=== PATIENT | male | born 1955 | race Caucasian/White ===

== ENCOUNTER 2016-08-16 14:45 | Inpatient (IN) ==
[2016-08-16] MEDS: *HR* OxyCODONE Immed Rel 5 MG TABLET PO PRN ×2 (15:42→20:25)
--- NOTE | 2016-08-16 16:11 | Internal Med History&Physical ---
Date of Encounter: 08/16/16 Time of Encounter: 16:09 Internal Medicine - H&P: HPI Chief complaint: Patient admitted significant for [facility] for rehabilitation sta Admitted From: Hospital to Hospital Transfer Plans for Post Hospital Care: Home History of present illness: Mr. Romero is a 61 year old male Patient states that he has had many years of back pain problems could not take it anymore and ask his primary care physician refer him to someone that could do some definitive care. Sequelae was accomplished Past Med Surg Social Fam HX - Past Medical History Medical history: hypertension, other Psychiatric history: anxiety - Past Surgical History Surgical History: no surgical history - Social History Smoking Status: Current every day smoker Smokeless Tobacco Status: No Alcohol use: none Drug use: none Internal Medicine - H&P: Meds Diazepam [Valium] 5 mg PO TID PRN #9 tablet 08/15/16 [Rx] OxyCODONE Immed Rel [Roxicodone 5 MG] 10 mg PO Q4HR PRN #50 tablet 08/15/16 [Rx] Varenicline [Chantix] 0.5 mg PO DAILY tablet 08/15/16 [Rx] Allergies No Known Allergies Allergy (Verified 08/12/16 06:56) All Systems PM: A 10-system review of systems was performed and is negative for pertinent findings except as documented above in the HPI. - Constitutional Vitals: Temp Pulse Resp BP Pulse Ox 97.5 F L 84 18 141/79 96 08/16/16 15:00 08/16/16 15:00 08/16/16 15:00 08/16/16 15:00 08/16/16 15:00 - Head Head exam: Present: atraumatic, normal inspection, normocephalic - Neck Neck exam general surgery: Present: supple, trachea midline. Absent: lymphadenopathy - Respiratory Respiratory exam: Present: CTAB. Absent: accessory muscle use, rales, rhonchi, wheezes - Cardiovascular Cardiovascular exam: Present: RRR, +S1, +S2. Absent: diastolic murmur, gallop, rubs, systolic murmur - GI/Abdominal GI/Abdominal exam: Present: normal bowel sounds, soft, no peritoneal signs. Absent: distended, tenderness Internal Med - H&P Results - Labs Labs: Labs pending - VTE Documentation of Mechanical Device: Graduated compression elastic hosiery
[2016-08-17] MEDS: *HR* OxyCODONE Immed Rel 5 MG TABLET PO PRN ×5 (01:15→20:08)
[2016-08-17 05:50] LABS: Basophils % 0.4 %; Eosinophils # 0.4 K/mcL (0.0-0.6); Eosinophils % 3.7 %; Hematocrit 34.3 % (37.5-50.1); Hemoglobin 11.7 g/dL (12.9-16.9); Immature Granulocytes % 0.5 % (0-4); Lymphocytes # 2.8 K/mcL (0.6-4.6); Lymphocytes % 28.9 %; Mean Corpuscular HGB Conc 34.1 g/dL (31.6-35.5); Mean Corpuscular Hemoglobin 30.2 pg (28.0-33.3); Mean Corpuscular Volume 88.6 fL (83.0-100.0); Mean Platelet Volume 9.4 fL (9.4-12.4); Monocytes # 1.1 K/mcL (0.0-1.3); Monocytes % 11.5 %; Neutrophils # 5.2 K/mcL (1.6-8.9); Platelet Count 388 K/mcL (140-400); Red Blood Count 3.87 M/mcL (4.19-5.50); Red Cell Distribution Width 13.2 % (11.5-14.5)
[2016-08-17 06:03] LABS: BUN/Creatinine Ratio 24 (6-26); Blood Urea Nitrogen 18 mg/dL (8-26); Calcium 8.5 mg/dL (8.6-10.8); Carbon Dioxide 23 mEq/L (19-29); Chloride 105 mEq/L (98-109); Glucose 105 mg/dL (70-99); Osmolality,Calculated 292 (280-300); Potassium 3.2 mEq/L (3.5-4.5); Sodium 140 mEq/L (136-145); eGFR For African Americans > 60 (> 60); eGFR For Non-African Americans > 60 (> 60)
--- NOTE | 2016-08-17 13:31 | Internal Med Progress Note ---
Date of Encounter: 08/17/16 Time of Encounter: 13:30 - Time Spent With Patient Status post PLIF. PT OT working on transfer, gait, endurance. History of hypertension. History of COPD. less than 15 minutes - Subjective Interval history: Complaints of mild postop back pain. No shortness of breath. No chest pain. No nausea vomiting abdominal pain. Voiding adequately - Constitutional Vitals: Temp Pulse Resp BP Pulse Ox 98.6 F 77 18 129/78 98 08/17/16 06:45 08/17/16 06:45 08/17/16 06:45 08/17/16 06:45 08/17/16 06:45 General appearance: Present: A&O X 3, pleasant, no acute distress - Respiratory Respiratory exam: Present: CTAB. Absent: accessory muscle use, rales, rhonchi, wheezes - Cardiovascular Cardiovascular exam: Present: RRR, +S1, +S2. Absent: diastolic murmur, gallop, rubs, systolic murmur - GI/Abdominal GI/Abdominal exam: Present: normal bowel sounds, soft, no peritoneal signs. Absent: distended, tenderness - Extremities Exam Extremities exam: Present: warm, radial pulses palpable and symetrical. Absent : calf tenderness, cyanotic, pedal edema - Back Exam Back exam: Present: tenderness Internal Medicine: Result - Labs CBC & Chem 7: 08/17/16 04:50 08/17/16 04:50 Labs: Short CBC 08/17/16 Range/Units 04:50 WBC 9.5 (4.3-11.1) K/mcL Hgb 11.7 L (12.9-16.9) g/dL Hct 34.3 L (37.5-50.1) % Plt Count 388 (140-400) K/mcL Neutrophils # 5.2 (1.6-8.9) K/mcL BMP 08/17/16 04:50 Sodium 140 Potassium 3.2 L Chloride 105 Carbon Dioxide 23 BUN 18 Creatinine 0.76 Glucose 105 H Calcium 8.5 L - VTE Documentation of Mechanical Device: Graduated compression elastic hosiery Consult Discharge Plan - Plan Referrals: Thang Alcala MD [Primary Care Provider] -
[2016-08-18] MEDS: *HR* OxyCODONE Immed Rel 5 MG TABLET PO PRN ×5 (00:03→23:38)
--- NOTE | 2016-08-18 10:31 | Internal Med Progress Note ---
Date of Encounter: 08/18/16 Time of Encounter: 10:30 - Time Spent With Patient Diagnosis. Status postPLIF history of hypertension. History of COPD. Plan. PT OT working on endurance, gait transfer improving ADL. less than 15 minutes - Subjective Interval history: Complaints of mild postop back pain but better today. Voiding okay.. No shortness of breath. No chest pain. No nausea vomiting abdominal pain. Voiding adequately - Constitutional Vitals: Temp Pulse Resp BP Pulse Ox 98.4 F 80 18 118/76 94 L 08/18/16 07:29 08/18/16 07:29 08/18/16 07:29 08/18/16 07:29 08/18/16 07:29 General appearance: Present: A&O X 3, pleasant, no acute distress - Respiratory Respiratory exam: Present: CTAB. Absent: accessory muscle use, rales, rhonchi, wheezes - Cardiovascular Cardiovascular exam: Present: RRR, +S1, +S2. Absent: diastolic murmur, gallop, rubs, systolic murmur - GI/Abdominal GI/Abdominal exam: Present: normal bowel sounds, soft, no peritoneal signs. Absent: distended, tenderness - Incison Incision: Present: clean and dry - Back Exam Back exam: Present: tenderness Internal Medicine: Result - Labs CBC & Chem 7: 08/17/16 04:50 08/17/16 04:50 - VTE Documentation of Mechanical Device: Graduated compression elastic hosiery Consult Discharge Plan - Plan Referrals: Thang Alcala MD [Primary Care Provider] -
[2016-08-19] MEDS: *HR* OxyCODONE Immed Rel 5 MG TABLET PO PRN ×5 (05:39→22:45)
[2016-08-19 06:40] LABS: Basophils % 0.3 %; Eosinophils # 0.5 K/mcL (0.0-0.6); Eosinophils % 5.3 %; Hematocrit 33.4 % (37.5-50.1); Hemoglobin 11.4 g/dL (12.9-16.9); Immature Granulocytes % 0.6 % (0-4); Lymphocytes # 2.3 K/mcL (0.6-4.6); Lymphocytes % 25.7 %; Mean Corpuscular HGB Conc 34.1 g/dL (31.6-35.5); Mean Corpuscular Hemoglobin 30.2 pg (28.0-33.3); Mean Corpuscular Volume 88.6 fL (83.0-100.0); Mean Platelet Volume 8.8 fL (9.4-12.4); Monocytes # 0.8 K/mcL (0.0-1.3); Monocytes % 9.2 %; Neutrophils # 5.3 K/mcL (1.6-8.9); Platelet Count 419 K/mcL (140-400); Red Blood Count 3.77 M/mcL (4.19-5.50); Red Cell Distribution Width 13.2 % (11.5-14.5); Segmented Neutrophils % 58.9 %
[2016-08-19 06:42] LABS: BUN/Creatinine Ratio 19 (6-26); Blood Urea Nitrogen 14 mg/dL (8-26); Calcium 8.6 mg/dL (8.6-10.8); Carbon Dioxide 25 mEq/L (19-29); Chloride 107 mEq/L (98-109); Glucose 105 mg/dL (70-99); Osmolality,Calculated 295 (280-300); Potassium 3.8 mEq/L (3.5-4.5); Sodium 142 mEq/L (136-145); eGFR For African Americans > 60 (> 60); eGFR For Non-African Americans > 60 (> 60)
[2016-08-19] MEDS ORDERED: Ibuprofen 800 MG TABLET PO ONE ×2 (14:14→20:52)
--- NOTE | 2016-08-19 14:17 | Internal Med Progress Note ---
Date of Encounter: 08/19/16 Time of Encounter: 14:15 - Subjective Interval history: Patient had a lumbar laminectomy due to spinal compression. He states he is having some radiculopathy down the right leg. I am going to start ibuprofen to see if that helps. He states generally been able to do his therapy without difficulty but it started bothering him after therapy today - Constitutional Vitals: Temp Pulse Resp BP Pulse Ox 98.4 F 85 18 124/78 96 08/19/16 07:17 08/19/16 07:17 08/19/16 07:17 08/19/16 07:17 08/19/16 07:17 General appearance: Present: A&O X 3, pleasant, no acute distress - Head Head exam: Present: normal inspection - Neck Neck exam general surgery: Present: supple, trachea midline. Absent: lymphadenopathy - Respiratory Respiratory exam: Present: CTAB. Absent: accessory muscle use, rales, rhonchi, wheezes - Cardiovascular Cardiovascular exam: Present: RRR, +S1, +S2. Absent: diastolic murmur, gallop, rubs, systolic murmur - GI/Abdominal GI/Abdominal exam: Present: normal bowel sounds, soft, no peritoneal signs. Absent: distended, tenderness Internal Medicine: Result - Labs CBC & Chem 7: 08/19/16 04:00 08/19/16 06:25 Labs: Short CBC 08/19/16 Range/Units 04:00 WBC 9.0 (4.3-11.1) K/mcL Hgb 11.4 L (12.9-16.9) g/dL Hct 33.4 L (37.5-50.1) % Plt Count 419 H (140-400) K/mcL Neutrophils # 5.3 (1.6-8.9) K/mcL BMP 08/19/16 06:25 Sodium 142 Potassium 3.8 Chloride 107 Carbon Dioxide 25 BUN 14 Creatinine 0.75 Glucose 105 H Calcium 8.6 - VTE Documentation of Mechanical Device: Graduated compression elastic hosiery Consult Discharge Plan - Plan Referrals: Thang Alcala MD [Primary Care Provider] -
[2016-08-20] MEDS: *HR* OxyCODONE Immed Rel 5 MG TABLET PO PRN ×4 (02:55→16:51)
[2016-08-20 06:19] LABS: Basophils # 0.1 K/mcL (0.0-0.2); Basophils % 0.6 %; Eosinophils # 0.6 K/mcL (0.0-0.6); Eosinophils % 6.8 %; Hematocrit 33.5 % (37.5-50.1); Hemoglobin 11.5 g/dL (12.9-16.9); Immature Granulocytes % 0.6 % (0-4); Lymphocytes # 2.4 K/mcL (0.6-4.6); Mean Corpuscular HGB Conc 34.3 g/dL (31.6-35.5); Mean Corpuscular Hemoglobin 30.6 pg (28.0-33.3); Mean Corpuscular Volume 89.1 fL (83.0-100.0); Mean Platelet Volume 8.6 fL (9.4-12.4); Monocytes # 0.7 K/mcL (0.0-1.3); Neutrophils # 4.4 K/mcL (1.6-8.9); Platelet Count 463 K/mcL (140-400); Red Blood Count 3.76 M/mcL (4.19-5.50); Red Cell Distribution Width 13.3 % (11.5-14.5)
[2016-08-20] MEDS: Ibuprofen 800 MG TABLET PO PRN ×2 (11:56→20:40)
--- NOTE | 2016-08-20 13:26 | Internal Med Progress Note ---
Date of Encounter: 08/20/16 Time of Encounter: 13:25 - Time Spent With Patient less than 15 minutes - Subjective Interval history: Patient had a lumbar laminectomy due to spinal compression. He states he is having some radiculopathy down the right leg. I am going to start ibuprofen to see if that helps. He states generally been able to do his therapy without difficulty but it started bothering him after therapy today - Constitutional Vitals: Temp Pulse Resp BP Pulse Ox 97.8 F 66 18 114/75 98 08/20/16 07:12 08/20/16 07:12 08/20/16 07:12 08/20/16 07:12 08/20/16 07:12 General appearance: Present: A&O X 3, pleasant, no acute distress - Head Head exam: Present: atraumatic, normocephalic - Neck Neck exam general surgery: Present: supple, trachea midline. Absent: lymphadenopathy - Respiratory Respiratory exam: Present: CTAB. Absent: accessory muscle use, rales, rhonchi, wheezes - Cardiovascular Cardiovascular exam: Present: RRR, +S1, +S2. Absent: diastolic murmur, gallop, rubs, systolic murmur - GI/Abdominal GI/Abdominal exam: Present: normal bowel sounds, soft, no peritoneal signs. Absent: distended, tenderness Internal Medicine: Result - Labs CBC & Chem 7: 08/20/16 06:00 08/19/16 06:25 Labs: Short CBC 08/20/16 Range/Units 06:00 WBC 8.2 (4.3-11.1) K/mcL Hgb 11.5 L (12.9-16.9) g/dL Hct 33.5 L (37.5-50.1) % Plt Count 463 H (140-400) K/mcL Neutrophils # 4.4 (1.6-8.9) K/mcL Lab is okay - VTE Documentation of Mechanical Device: Graduated compression elastic hosiery Consult Discharge Plan - Plan Referrals: Thang Alcala MD [Primary Care Provider] -
--- NOTE | 2016-08-20 13:28 | Internal Med Progress Note ---
Date of Encounter: 08/20/16 Time of Encounter: 13:27 - Time Spent With Patient less than 15 minutes - Subjective Interval history: Patient had a lumbar laminectomy due to spinal compression. He states he is having some radiculopathy down the right leg. I am going to start ibuprofen to see if that helps. He states generally been able to do his therapy without difficulty but it started bothering him after therapy today - Constitutional Vitals: Temp Pulse Resp BP Pulse Ox 97.8 F 66 18 114/75 98 08/20/16 07:12 08/20/16 07:12 08/20/16 07:12 08/20/16 07:12 08/20/16 07:12 General appearance: Present: A&O X 3, pleasant, no acute distress - Head Head exam: Present: atraumatic, normocephalic - Respiratory Respiratory exam: Present: CTAB. Absent: accessory muscle use, rales, rhonchi, wheezes - Cardiovascular Cardiovascular exam: Present: RRR, +S1, +S2. Absent: diastolic murmur, gallop, rubs, systolic murmur - GI/Abdominal GI/Abdominal exam: Present: normal bowel sounds, soft, no peritoneal signs. Absent: distended, tenderness Internal Medicine: Result - Labs CBC & Chem 7: 08/20/16 06:00 08/19/16 06:25 Labs: Short CBC 08/20/16 Range/Units 06:00 WBC 8.2 (4.3-11.1) K/mcL Hgb 11.5 L (12.9-16.9) g/dL Hct 33.5 L (37.5-50.1) % Plt Count 463 H (140-400) K/mcL Neutrophils # 4.4 (1.6-8.9) K/mcL - VTE Documentation of Mechanical Device: Graduated compression elastic hosiery Consult Discharge Plan - Plan Referrals: Thang Alcala MD [Primary Care Provider] -
--- NOTE | 2016-08-20 13:47 | Discharge Summary ---
Date of Encounter: 08/21/16 Time of Encounter: 15:00 - Discharge Medications Home Medications: Diazepam [Valium] 5 mg PO TID PRN #9 tablet 08/15/16 [Rx] OxyCODONE Immed Rel [Roxicodone 5 MG] 10 mg PO Q4HR PRN #50 tablet 08/15/16 [Rx] Varenicline [Chantix] 0.5 mg PO DAILY tablet 08/15/16 [Rx] Allergies/Adverse Reactions: Allergies No Known Allergies Allergy (Verified 08/12/16 06:56) Date of admission: 08/16/16 14:49 Primary care physician: Jeremy Estrella Consults: 08/16/16 15:07 Consult to Occupational Therapy [CONS] Routine Comment: eval Consult to Physical Therapy [CONS] Routine Comment: eval Consult to Recreational Therapy [CONS] Routine Comment: Consult to Water Treatment Technician [CONS] Routine Reason for SW Consult: d/c planning Discharging clinician: Boston Flanagan Anticipated date of discharge: 08/21/16 - Patient Status Disposition: Home, Self-Care Condition: Good Functional capacity at discharge: uses cane/walker Overall status at discharge: patient is progressing back to baseline - Discharge Instructions Follow Up With: Thang Alcala MD [Primary Care Provider] - - Diet and Activity Activity: ambulate only with your walker Hospital course: Mr. Romero is a 61 year old male - Time Spent with Patient Total time spent providing and/or coordinating discharge services: Less than 30 minutes - Constitutional Vitals: Temp Pulse Resp BP Pulse Ox 97.8 F 66 18 114/75 98 08/20/16 07:12 08/20/16 07:12 08/20/16 07:12 08/20/16 07:12 08/20/16 07:12 General appearance: Present: A&O X 3, pleasant, no acute distress - Head Head exam: Present: atraumatic, normal inspection, normocephalic - Neck Neck exam general surgery: Present: supple, trachea midline. Absent: lymphadenopathy - Respiratory Respiratory exam: Present: CTAB. Absent: accessory muscle use, rales, rhonchi, wheezes - Cardiovascular Cardiovascular exam: Present: RRR, +S1, +S2. Absent: diastolic murmur, gallop, rubs, systolic murmur - VTE Documentation of Mechanical Device: Graduated compression elastic hosiery
[2016-08-21] MEDS: *HR* OxyCODONE Immed Rel 5 MG TABLET PO PRN ×2 (03:31→08:58)
[2016-08-21 07:16] VITALS: BP 124/76
== END 2016-08-21 12:00 | disposition home or self-care (01) | DRG 950 ==
LOC: INPGRE 14:49
PROVIDERS: ADMIT Internal Medicine; ATTEND Internal Medicine